=== PATIENT | female | born 1990 | race Caucasian/White ===

== ENCOUNTER → 2016-10-20 | Outpatient (CLI) | payer OTHER ==
[2016-10-20 13:18] LABS: BASO % 0.2 % (0.0-1.0); EOS # 0.1 K/mm3 (0.0-0.50); LARGE UNSTAINED CELL # 0.2 K/mm3 (0.0-0.4); LYMPH % 24.3 % (24.0-44.0); MEAN CORPUSCULAR HEMOGLOBIN 29.2 pg (27.0-33.0); MEAN CORPUSCULAR HGB CONC 34.3 g/dl (32.0-36.5); MEAN CORPUSCULAR VOLUME 85.1 fl (80.0-96.0); MONO # 0.4 K/mm3 (0.0-0.8); MONO % 4.8 % (0.0-5.0); NEUTROPHILS # 5.3 K/mm3 (1.8-7.7); NEUTROPHILS % 67.8 % (36.0-66.0); PLATELET COUNT, AUTOMATED 215 k/mm3 (150-450); RED CELL DISTRIBUTION WIDTH 13.9 % (11.5-14.5); WHITE BLOOD COUNT 7.8 K/mm3 (4.0-10.0)
[2016-10-20 14:05] LABS: HBsAg Prenatal NEGATIVE (NEGATIVE)
== END ==
LOC: M SMT 10:17
PROVIDERS: ATTEND Obstetrics & Gynecology
DX: Z34.81 Encounter for supervision of other normal pregnancy, first trimester (principal)

== ENCOUNTER → 2016-10-29 | Outpatient (CLI) | payer OTHER ==
--- NOTE | 2016-10-29 15:17 | REP ---
Clinical: Dating and viability. Technique: Transabdominal first trimester obstetrical ultrasound with color Doppler evaluation. Findings: Single live early intrauterine is appreciated. Biometrical measurements correspond to 14 weeks 6 days gestational age with estimated date of delivery 04/23/2017 . heart rate equals 160 beats per minute. No gross abnormalities are identified. Impression: Single live early intrauterine at 14 weeks 6 days gestational age. Complete anatomical assessment should be performed and 19-20 weeks. Signed by Juan Manuel Stanley MD 10/29/2016 03:08 P
== END ==
LOC: M SMT 13:42
PROVIDERS: ATTEND Obstetrics & Gynecology
DX: Z34.81 Encounter for supervision of other normal pregnancy, first trimester (principal); Z3A.14 14 weeks gestation of pregnancy

== ENCOUNTER → 2016-12-01 | Outpatient (CLI) | payer OTHER ==
--- NOTE | 2016-12-02 14:17 | REP ---
Clinical: Anatomical evaluation. Comparison: 10/29/2016 . Findings: Examination demonstrates a single live intrauterine in transverse (head to maternal right) presentation. motion is identified by technologist. Placenta is noted anteriorly and grade zero without evidence for placenta previa or abruption. Amniotic fluid volume is normal. Cervix measures 3.2 cm in length and appears closed. No evidence for nuchal cord. Gestational age by LMP 19 weeks 4 days with LIBBY 04/23/2017 . Gestational age by current measurements 19 weeks 2 days with LIBBY 04/25/2017 . FHR equals 150 beats per minute. BPD 4.4 cm 19 weeks 3 days HC 16.1 cm 18 weeks 6 days AC 15.1 cm 20 weeks 2 days FL 3.0 cm 19 weeks 2 days HL 3.1 cm 20 weeks 3 day s HC/AC ratio 1.07 Estimated weight 311 grams ( 52nd percentile). Anatomical assessment demonstrates normal structures including cranium, choroid plexus, cavum, cerebellum/posterior fossa, nose and lips, lungs, diaphragm, stomach, three-vessel cord, kidneys/bladder, spine, and upper extremities. Limited evaluation of the facial profile, heart/ventricular outflow tracts, cord insertion, and lower extremities. Impression: 1. Single live intrauterine in transverse lie demonstrating appropriate interval growth. 2. Anatomical limitations as described above. Remainder of the assessment is normal. Signed by Juan Manuel Stanley MD 12/02/2016 02:08 P
== END ==
LOC: M SMT 12:59
PROVIDERS: ATTEND Obstetrics & Gynecology
DX: Z34.82 Encounter for supervision of other normal pregnancy, second trimester (principal); Z3A.19 19 weeks gestation of pregnancy

== ENCOUNTER → 2016-12-30 | Outpatient (CLI) | payer MEDICAID ==
--- NOTE | 2016-12-30 16:22 | REP ---
Obstetric sonography: History: Supervision of followup anatomy, facial profile, heart and outflow tracts and cord insertion and lower extremities. Comparison study: December 01 2016. Findings: Scanning through the gravid uterus demonstrates a viable single intrauterine gestation in variable lie. motion is observed and heart rate is recorded at 150 beats per minute. An anterior grade zero placenta is seen without evidence of previa. Closed cervical length is 3.3 cm measured transabdominally. No extrauterine abnormalities observed. There has been appropriate interval growth. No anomaly is seen. The right cardiac outflow tract is still less than optimally seen due to lie. The following additional anatomic structures are identified and felt to be sonographically unremarkable: cranium, choroid plexus, cavum, cerebellum posterior fossa, face and profile, lungs, four-chamber heart with left ventricular outflow tract view, diaphragm, left-sided stomach, abdominal wall cord insertion, three-vessel umbilical cord, kidneys and bladder, spine, upper and lower extremities. Biometry chart: BPD 5.4 cm = 22 weeks 3 days Head circumference 20.2 cm = 22 weeks 3 days Abdominal circumference 18.7 cm = 22 weeks 3 days Femur length 4.2 cm = 23 weeks 6 days Humeral length 3.9 cm = 24 weeks 0 days HC/AC ratio normal 1.08, cephalic index normal 0.74, estimated weight 594 grams 1 pound 4 ounces 36 percentile for 23 weeks 5 days. Impression: Viable single intrauterine gestation at 22 weeks 5 days by today's composite criteria. LIBBY by today's sonography April 30, 2017. anatomic survey is complete with the exception of right ventricular cardiac outflow tract view which was still less than optimally seen. Signed by Jerson Courtney MD 12/30/2016 05:27 P
== END ==
LOC: M SMT 08:48
PROVIDERS: ATTEND Advanced Practice Midwife
DX: Z34.83 Encounter for supervision of other normal pregnancy, third trimester (principal); Z3A.22 22 weeks gestation of pregnancy

== ENCOUNTER → 2017-01-27 | Outpatient (CLI) | payer MEDICAID ==
[2017-01-27 18:41] LABS: BASO % 0.2 % (0.0-1.0); EOS # 0.1 10^3/uL (0.0-0.50); EOS % 0.6 % (0.0-3.0); IMMATURE GRANULOCYTE % 0.5 % (0-0); LYMPH # 2.1 10^3/uL (1.5-6.5); LYMPH % 16.7 % (24.0-44.0); MEAN CORPUSCULAR HEMOGLOBIN 27.7 pg (27.0-33.0); MEAN CORPUSCULAR HGB CONC 32.1 g/dl (32.0-36.5); MEAN CORPUSCULAR VOLUME 86.1 fl (80.0-96.0); MONO # 0.7 10^3/uL (0.0-0.8); MONO % 5.9 % (0.0-5.0); NEUTROPHILS # 9.5 10^3/uL (1.8-7.7); NEUTROPHILS % 76.1 % (36.0-66.0); PLATELET COUNT, AUTOMATED 276 10^3/uL (150-450); RED CELL DISTRIBUTION WIDTH 13.2 % (11.5-14.5); WHITE BLOOD COUNT 12.5 10^3/uL (4.0-10.0)
== END ==
LOC: M SMT 13:25
PROVIDERS: ATTEND Advanced Practice Midwife
DX: Z34.83 Encounter for supervision of other normal pregnancy, third trimester (principal); Z3A.00 Weeks of gestation of pregnancy not specified

== ENCOUNTER → 2017-02-03 | Outpatient (CLI) | payer MEDICAID | LOC: M LAB 07:59 | PROVIDERS: ATTEND Obstetrics & Gynecology | DX: Z34.83 Encounter for supervision of other normal pregnancy, third trimester (principal); Z3A.00 Weeks of gestation of pregnancy not specified ==

== ENCOUNTER → 2017-02-28 | Outpatient (CLI) | payer MEDICAID | LOC: M SMT 11:22 | DX: Z34.82 Encounter for supervision of other normal pregnancy, second trimester (principal); Z3A.32 32 weeks gestation of pregnancy | CPT/HCPCS: 76816 ==

== ENCOUNTER → 2017-03-30 | Outpatient (REF) | payer MEDICAID | LOC: M LAB REF 13:01 | DX: Z34.83 Encounter for supervision of other normal pregnancy, third trimester (principal) | CPT/HCPCS: 87186 ==

== ENCOUNTER 2017-04-19 04:46 | Inpatient (IN) | payer MEDICAID ==
[2017-04-19] MEDS ORDERED: LR 1,000 ML IV (05:15)
[2017-04-19] MEDS: LR 1,000 ML IV ×4 (05:30→15:55)
[2017-04-19 05:45] LABS: HEMATOCRIT 35.2 % (36.0-47.0); HEMOGLOBIN 11.1 g/dl (12.0-16.0); MEAN CORPUSCULAR HEMOGLOBIN 24.7 pg (27.0-33.0); MEAN CORPUSCULAR HGB CONC 31.5 g/dl (32.0-36.5); MEAN CORPUSCULAR VOLUME 78.4 fl (80.0-96.0); PLATELET COUNT, AUTOMATED 261 10^3/uL (150-450); RED BLOOD COUNT 4.49 10^6/uL (4.00-5.40); RED CELL DISTRIBUTION WIDTH 14.5 % (11.5-14.5); WHITE BLOOD COUNT 11.1 10^3/uL (4.0-10.0)
[2017-04-19] MEDS: BICITRA 30ML SOLN UDC PO (07:36)
[2017-04-19] MEDS ORDERED: METOCLOPRAMIDE INJ 10MG/2ML VIAL (J2765) IV ×2 (07:53→09:30)
[2017-04-19] MEDS ORDERED: ONDANSETRON 4MG/2ML VIAL (J2405) IV ×3 (07:53→09:30)
[2017-04-19] MEDS ORDERED: NALOXONE INJ 0.4 MG/1 ML VIAL (J2310) IV ×2 (07:53)
[2017-04-19] MEDS ORDERED: NALBUPHINE HCL 10 MG/ML AMP (J2300) IV (07:53)
[2017-04-19] MEDS ORDERED: MORPHINE PRES-FREE INJ 10 MG/10 ML VIAL (J2274) As Ordered (08:10)
[2017-04-19] MEDS ORDERED: ONDANSETRON 4MG/2ML VIAL (J2405) As Ordered (08:10)
[2017-04-19] MEDS ORDERED: OXYTOCIN INJ 10 UNITS/ML VIAL (J2590) As Ordered (08:10)
[2017-04-19] MEDS ORDERED: ePHEDrine SULFATE 25 MG/5 ML(5MG/ML) SYRINGE As Ordered (08:10)
[2017-04-19] MEDS ORDERED: KETOROLAC 60 MG/2 ML VIAL (J1885) As Ordered (08:40)
[2017-04-19] MEDS ORDERED: DOCUSATE SODIUM 100 MG CAP PO (09:00)
[2017-04-19] MEDS: PRENATAL VITAMINS CHEWABLE TABLET PO (09:00)
[2017-04-19] MEDS ORDERED: PERCOCET 5MG/325MG TAB PO ×2 (09:00→09:30)
[2017-04-19] MEDS ORDERED: fentaNYL 100 MCG/2 ML INJECTION (J3010) IV (09:30)
[2017-04-19] MEDS: KETOROLAC 30 MG/ML VIAL (J1885) IV ×2 (15:55→20:38)
[2017-04-20] MEDS: KETOROLAC 30 MG/ML VIAL (J1885) IV ×2 (03:06→08:26)
[2017-04-20 07:12] LABS: HEMATOCRIT 31.3 % (36.0-47.0); HEMOGLOBIN 9.8 g/dl (12.0-16.0); MEAN CORPUSCULAR HEMOGLOBIN 25.3 pg (27.0-33.0); MEAN CORPUSCULAR HGB CONC 31.3 g/dl (32.0-36.5); MEAN CORPUSCULAR VOLUME 80.9 fl (80.0-96.0); PLATELET COUNT, AUTOMATED 216 10^3/uL (150-450); RED BLOOD COUNT 3.87 10^6/uL (4.00-5.40); RED CELL DISTRIBUTION WIDTH 14.7 % (11.5-14.5); WHITE BLOOD COUNT 10.3 10^3/uL (4.0-10.0)
[2017-04-20] MEDS: MEASLES,MUMPS,RUBELLA VACCINE INJ (MMR-II) (90707) SC (07:14)
[2017-04-20] MEDS: RHOGAM 300 MCG (1500 IU) INJ (J2790) IM (07:14)
[2017-04-20] MEDS: PRENATAL VITAMINS CHEWABLE TABLET PO (08:26)
[2017-04-20] MEDS: PERCOCET 5MG/325MG TAB PO ×2 (13:10→20:15)
[2017-04-20] MEDS: IBUPROFEN 800 MG TAB PO (16:24)
[2017-04-21] MEDS: IBUPROFEN 800 MG TAB PO ×2 (01:37→08:25)
[2017-04-21] MEDS: PRENATAL VITAMINS CHEWABLE TABLET PO (08:24)
[2017-04-21] MEDS: ADACEL/BOOSTRIX VACCINE (DIPHTH/PERTUSS/ACELL/TETANUS)0.5ML SYR (90715) IM (10:06)
[2017-04-21] MEDS: INFLUENZA QUADRIVALENT PF VACCINE 0.5ML SYRINGE (90686) IM (10:08)
== END 2017-04-21 11:41 | disposition home or self-care (01) | DRG 540 ==
LOC: M LDI 04:46 → M OBS 11:09
PROVIDERS: Obstetrics & Gynecology
PROC: 10D00Z1 Extraction of Products of Conception, Low, Open Approach (ICD-10-PCS; principal; 2017-04-19 07:30)
DX: O32.1XX0 Maternal care for breech presentation, not applicable or unspecified (principal); O99.824 Streptococcus B carrier state complicating childbirth; Z3A.39 39 weeks gestation of pregnancy; Z37.0 Single live birth

== ENCOUNTER 2017-06-13 20:40 | Emergency (ER) | payer MEDICAID ==
[2017-06-13] MEDS: CLINDAMYCIN 150 MG CAP PO (21:43)
== END 2017-06-13 21:52 | disposition home or self-care (01) ==
LOC: M ED 20:40
DX: L03.211 Cellulitis of face (principal); F41.9 Anxiety disorder, unspecified; Z87.891 Personal history of nicotine dependence
CPT/HCPCS: 99282

== ENCOUNTER 2018-01-25 16:12 | Emergency (ER) | payer BC, MEDICAID, OTHER ==
[~2018-01-25] VITALS: Ht 160 cm; Wt 268.2 kg
[2018-01-25 16:12] VITALS: BP 141/86
[~2018-01-25 16:12] MED LIST: APAP500T10 PO; CLEO300C2 PO; DIFL150T PO; FOLI5CAP PO; IBUP-1114 PO; IRON50TA PO; OXYC1TAB23 PO; PRENTAB40 PO
[2018-01-25] MEDS ORDERED: PENI500T PO (16:33)
[2018-01-25] MEDS ORDERED: ACET30TAB PO ×2 (16:33→17:37)
== END 2018-01-25 16:43 | disposition home or self-care (01) ==
LOC: M ED 16:12
DX: K08.89 Other specified disorders of teeth and supporting structures (principal); R68.84 Jaw pain

== ENCOUNTER → 2021-10-20 | Outpatient (REF) ==
[~2021-10-20] MED LIST changes: +ACET-716 PO; +PENI500T PO
[2021-10-22 05:07] LABS: HERPES ZOSTER, VARICELLA IgG 1172 index (Immune >165); RUBEOLA IgG ANTIBODY >300.0 AU/mL (Immune >16.4)
== END ==
LOC: M LAB 16:21
PROVIDERS: ATTEND Nurse Practitioner Adult Health
DX: Z02.89 Encounter for other administrative examinations (principal)

== ENCOUNTER → 2024-03-28 | Outpatient (REF) | LOC: M EMP 09:39 | PROVIDERS: ATTEND Family Medicine | DX: Z11.52 Encounter for screening for COVID-19 (principal) ==

== ENCOUNTER → 2024-11-20 | Outpatient (REF) ==
[2024-11-20 09:40] LABS: SOFIA COVID ANTIGEN NEGATIVE (NEGATIVE)
== END ==
LOC: M EMP 09:00
PROVIDERS: ATTEND Family Medicine
DX: Z01.89 Encounter for other specified special examinations (principal)